=== PATIENT | female | born 1975 | race Caucasian/White ===

== ENCOUNTER 2018-12-12 15:44 | Emergency (ER) | payer OTHER ==
[2018-12-12] MEDS ORDERED: predniSONE 50 MG TAB PO STA (16:13)
[2018-12-12] MEDS ORDERED: KETOROLAC 60 MG/2 ML VIAL IM STA (16:13)
[2018-12-12 16:15] VITALS: BP 137/85; PULSE 88; RESP 16; TEMP 98.4
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
== END 2018-12-12 16:35 | disposition home or self-care (01) ==
LOC: EC 15:44
DX: S33.5XXA Sprain of ligaments of lumbar spine, initial encounter (principal); R42 Dizziness and giddiness; R51 Headache; F17.200 Nicotine dependence, unspecified, uncomplicated; Z88.5 Allergy status to narcotic agent; Z98.890 Other specified postprocedural states; Z87.828 Personal history of other (healed) physical injury and trauma; Z87.81 Personal history of (healed) traumatic fracture; X58.XXXA Exposure to other specified factors, initial encounter
CPT/HCPCS: 99283; 96372; J1885; J7512

== ENCOUNTER 2019-05-17 | Emergency (ER) | payer OTHER | END 2019-05-17 16:57 | disposition home or self-care (01) | CPT/HCPCS: 36415; 93005; 80053; 83605; 83690; 85025; 81001; 74177; 99284; 96374; 96375; 96361 ×3; J2270; J2405; Q9967 ==

== ENCOUNTER → 2023-11-07 | Outpatient (CLI) | payer OTHER ==
[2023-11-08 02:47] LABS: BUN/Creat Ratio 11.86 Ratio (12.00-20.00); Blood Urea Nitrogen 8.3 mg/dL (9.0-27.0); Chloride 102 mmol/L (96-109); Chol/HDL Ratio 5.06 Ratio; Glucose 91 mg/dL (70-110); LDL Cholesterol,Calculated 132.7 mg/dL (0.0-131.0); Potassium 4.2 mmol/L (3.5-5.5); Sodium 142 mmol/L (135-145)
[2023-11-08 02:48] LABS: ALT 18 U/L (8-44); AST 22 U/L (13-35); Albumin 4.7 g/dL (3.8-4.9); Albumin/Globulin Ratio 1.81 Ratio (1.60-3.17); Alkaline Phosphatase 98 U/L (41-126); Calcium 9.9 mg/dL (8.7-10.3); Carbon Dioxide 28.5 mmol/L (21.6-31.8); Globulin 2.6 g/dL (1.6-3.3); Total Bilirubin <0.2 mg/dL (0.3-1.2); Total Protein 7.3 g/dL (6.2-8.2)
[2023-11-08 02:51] LABS: Basophils # (A) 0.09 X 10*3/uL (0.00-0.10); Basophils % (A) 1.1 %; Eosinophils # (A) 0.35 X 10*3/uL (0.04-0.35); Eosinophils % (A) 4.3 %; HCT 46.5 % (37.2-46.3); HGB 14.7 g/dL (12.0-15.0); Lymphocytes # (A) 2.12 X 10*3/uL (0.90-5.00); MCH 29.8 pg (27.0-32.0); MCHC 31.6 g/dL (32.0-37.0); MCV 94.1 FL (80.0-97.0); Mean Platelet Volume 10.1 FL (9.5-12.2); Monocytes # (A) 0.55 X 10*3/uL (0.20-1.00); Monocytes % (A) 6.7 %; NRBC Per 100 WBC 0 X 10*3/uL (0.00-0.01); Neutrophils # (A) 5.01 X 10*3/uL (1.80-7.70); Neutrophils % (A) 61.5 %; Platelet Count 498 X 10*3/uL (140-440); RBC 4.94 X 10*6/uL (4.10-5.20); RDW 13.6 % (11.5-14.5); WBC 8.15 X 10*3/uL (4.50-10.00)
== END | disposition home or self-care (01) ==
LOC: LABWHC1 15:45
PROVIDERS: ATTEND Internal Medicine
DX: Z00.00 Encounter for general adult medical examination without abnormal findings (principal); R53.83 Other fatigue; R51.9 Headache, unspecified
CPT/HCPCS: 36415; 80053; 80061; 84443; 85025; 86803

== ENCOUNTER → 2023-11-07 | Outpatient (CLI) | payer MEDICARE ==
--- NOTE | 2023-11-11 18:10 | XR ---
EXAMINATION TYPE: XR cervical spine comp DATE OF EXAM: 11/07/2023 4:20 PM CLINICAL INDICATION: Female, 48 years old with history of M54.2 CERVICALGIA; PHH COMPARISON: None TECHNIQUE: The cervical spine was imaged in frontal, lateral, odontoid and bilateral oblique. FINDINGS: The osseous structures show normal alignment without evidence of an acute fracture. There are osteoph ytes noted throughout the cervical spine on the anterior and lateral aspects of the vertebral bodies. The intervertebral disk spaces are narrowed at multiple levels. Pedicles are intact. Soft tissues a re within normal limits. The odontoid appears intact. IMPRESSION: 1. No fracture or dislocation. 2. Mild degenerative disc disease changes of the cervical spine.
== END | disposition home or self-care (01) ==
LOC: RADXRMAIN 16:00
PROVIDERS: ATTEND Internal Medicine
DX: M54.2 Cervicalgia (principal)
CPT/HCPCS: 72050

== ENCOUNTER → 2023-11-09 | Outpatient (CLI) | payer MEDICARE ==
--- NOTE | 2023-11-09 09:33 | US ---
EXAMINATION TYPE: US abdomen complete DATE OF EXAM: 11/09/2023 COMPARISON: NONE CLINICAL INDICATION: Female, 48 years old with history of R10.1 US ABD R14.0 ABD US; bloated, cholecy stectomy TECHNIQUE: Multiple sonographic images of the abdomen are obtained. FINDINGS: EXAM MEASUREMENTS: Liver Length: 18.3 cm Gallbladder Wall: Surgically absent CBD: 0.5 cm Spleen: 9.3 cm Right Kidney:10.5 x 5.3 x 4.5cm Left Kidney: 10.6 x 3.6 x 5.1cm Pancreas: wnl Liver: upper limits of normal for size Gallbladder: Surgically absent Evidence for sonographic Hodges's sign: no CBD: wnl Spleen: wnl Right Kidney: wnl Left Kidney: wnl Upper IVC: wnl Abd Aorta: wnl IMPRESSION: 1. Postcholecystectomy changes. 2. Hepatomegaly.
--- NOTE | 2023-11-11 11:28 | MM ---
Reason for Exam: Screening (asymptomatic). Baseline mammogram. Patient History: Menarche at age 11. First Full-Term at age 14. Left ovary removed at age 19. Right ovary removed at age 19. Hysterectomy at age 19. Postmenopausal. Patient has history of breast feeding. Maternal aunt had breast cancer at or over age 50. Maternal aunt had breast cancer at or over age 50. Maternal aunt had breast cancer at or over age 50. Risk Values: Colette 5 year model risk: 0.7%. NCI Lifetime model risk: 6.5%. Prior Study Comparison: Patient's first Mammogram. Tissue Density: The breasts are heterogeneously dense, which may obscure small masses. Findings: Analyzed By CAD. Right breast: There is no suspicious group of microcalcifications or new suspicious mass. Left breast: There is no suspicious group of microcalcifications or new suspicious mass. Overall Assessment: Negative, BI-RAD 1 Management: Screening Mammogram of both breasts in [address] [facility] will attempt to contact patient to return for supplemental views and ultrasound if indicated. Patient should continue monthly self-breast exams. A clinical breast exam by your physician is recommended on an annual basis. This exam should not preclude additional follow-up of suspicious palpable abnormalities. Note on Colette scores and lifetime risk: 1. A Colette score greater than 3% is considered moderate risk. If this is the case, consider specialist referral to assess eligibility for a risk reducing agent. 2. If overall lifetime risk for the development of breast cancer is 20% or higher, the patient may qualify for future screening with alternating mammogram and breast MRI. Electronically signed and approved by: Kody Wilson DO
== END | disposition home or self-care (01) ==
LOC: RADMAMWWP 07:47
PROVIDERS: ATTEND Internal Medicine
DX: Z12.31 Encounter for screening mammogram for malignant neoplasm of breast (principal); R10.10 Upper abdominal pain, unspecified; R14.0 Abdominal distension (gaseous)
CPT/HCPCS: 76700; 77067

== ENCOUNTER 2023-12-19 09:23 | Day surgery (SDC) | payer MEDICARE, OTHER ==
[2023-12-19] MEDS: IV FLUID CONTINUATION 1,000 ML IV ONE (09:41)
[2023-12-19 09:51] VITALS: TEMP 98.2
[2023-12-19] MEDS ORDERED: LIDOCAINE 1% (10MG/ML) FOR IV START INTRADERMA PRN (09:51)
[2023-12-19] MEDS: LACTATED RINGERS 1,000 ML IV SCH (10:00)
[2023-12-19] MEDS ORDERED: PROPOFOL 10 MG/ML 20 ML VIAL IV ONE (10:12)
[2023-12-19] MEDS ORDERED: LIDOCAINE 1% INJ 10MG/ML (20 ML MDV) ONE (10:12)
--- NOTE | 2023-12-19 10:32 | P.PCN ---
Date of Procedure: 12/19/23 Procedure(s) Performed: Brief history: Patient is a pleasant 48-year-old white female scheduled for an elective upper endoscopy as well as colonoscopy as a part of evaluation of GERD/epigastric pain and chronic diarrhea of several years duration Procedure performed: Esophagogastroduodenoscopy with biopsy Colonoscopy with random biopsies Preoperative diagnosis: Chronic epigastric pain Chronic diarrhea Anesthesia: MAC Procedure: After informed consent was obtained from the patient was brought into the endoscopy unit and IV sedation was administered by anesthesia under continuous monitoring. Initially upper endoscopy was done. The Olympus GF 160 video endoscope was inserted inserted into the mouth and esophagus intubated without any difficulty and was gradually advanced into the stomach and duodenum and carefully examined. The bulb and second part of the duodenum appeared normal. Biopsies were done from the duodenum to evaluate for celiac disease. The scope was then withdrawn into the stomach adequately insufflated with air and upon careful examination the antrum had mild gastritis and biopsies were done from this area. Mucosa of the body, cardia and fundus appeared normal. The scope was then withdrawn into the esophagus. Small hiatal hernia noted. The GE junction was located at 35 cm to the incisors. It appeared regular 2 superficial erosions and 1 ulceration consistent with LA grade B reflux esophagitis.. Rest of the esophagus appeared normal. Patient tolerated the procedure well. At this time the patient continued to remain sedation. Initial digital rectal examination was normal. Olympus CF 160 video colonoscope was then inserted into the rectum and gradually advanced to the cecum without any difficulty. Careful examination was performed as the scope was gradually being withdrawn. The prep was excellent. The cecum, ascending colon, transverse colon, descending colon, sigmoid colon and rectum appeared normal. Random biopsies were done from the ascending and descending colon rule out microscopic/collagenous colitis. Rectum there was a 3 mm polyp that was removed by cold biopsy. Retroflexion was performed in the rectum and no lesions were noted. Patient tolerated the procedure well. Impression: 1. Upper endoscopy revealed small hiatal hernia, LA grade B reflux esophagitis, mild antral gastritis and duodenitis 2. Colonoscopy 3 mm distal rectal polyp status post cold biopsy and the rest of the colon appeared normal Recommendations: Findings of this examination were discussed with the patient as well as her family. Follow the biopsy results. She was advised to start on omeprazole 40 mg daily and follow antireflux measures. Follow-up in the office in 2 weeks. Recommend repeat colonoscopy in 10 years.
[2023-12-19 11:07] VITALS: BP 119/81; PULSE 68; RESP 18
== END 2023-12-19 11:07 | disposition home or self-care (01) ==
LOC: ORWHC2ENDO 09:23
PROVIDERS: ATTEND Internal Medicine Gastroenterology
CPT/HCPCS: 43239; 45380; 88305

== ENCOUNTER 2024-04-23 08:11 | Day surgery (SDC) | payer MEDICARE, OTHER ==
[2024-04-23] MEDS: diazePAM 5 MG TAB PO STA (08:54)
[2024-04-23 09:02] VITALS: TEMP 98.2
--- NOTE | 2024-04-23 11:28 | CT ---
EXAMINATION TYPE: CT thor lumbar spine w con CT DLP: 763 mGycm, Automated exposure control for dose reduction was used. DATE OF EXAM: 04/23/2024 11:04 AM COMPARISON: Fluoroscopic myelogram of the same date, CT abdomen and pelvis 05/17/2019, thoracolumbar s pine radiographs 12/25/2023. CLINICAL INDICATION:Female, 48 years old with history of M43.26 FUSION OF SPINE, LUMBAR MORENO, M54.50, M54.16; PHH, post myelogram, pain TECHNIQUE: Multiple axial images were obtained of the thoracolumbar spine after fluoroscopic myelogr am. Soft tissue and bone windows in coronal and sagittal planes were obtained and reviewed. Contrast used:na mL of Isovue M300 with IV Contrast, none. Oral contrast used: none. FINDINGS: Postsurgical changes with bilateral pedicular screws and rods involving T11-L3. Only a left-sided ped icle screw at the L1 level. Additional transverse oriented bilateral SI joint screws. Hardware appear s intact with appropriate alignment. This creates streak artifact which limits evaluation. No acute f racture. Remote fracture of the L1 vertebral body with similar 2 mm retropulsion. No new vertebral veronica dy height loss. No spondylolisthesis. Remote healed injury to the S1 vertebral body. Mild S-shaped sc oliotic curvature of the thoracolumbar spine. Schmorl's node involving the superior endplate of the T 8 vertebral body. No significant central canal or neuroforamina stenosis of the thoracic spine. No evidence for disc he rniation. Approximately 2 mm of retropulsion of the posterior cortex of the L1 vertebral body from prior fractu re. Results in mild effacement of the anterior thecal sac. No other evidence for significant central canal stenosis of the lumbar spine. No disc herniation. No significant neuroforaminal stenosis of the lumbar spine. Atherosclerotic the visualized lungs are clear. Small hiatal hernia. Gallbladder is surgically absent . Calcification of the aorta and its branches. Small coronary artery calcifications. IMPRESSION: 1. No evidence for acute spinal fracture. 2. Postsurgical changes from fixation T11-L3 with additional bilateral SI joint fixation. Hardware ap pears intact with appropriate alignment. Remote fractures of the L1 and S2 vertebral bodies. Mild ret ropulsion of the posterior cortex of the L1 vertebral body resulting in mild central canal narrowing. Otherwise no other significant central canal or neural foraminal narrowing visualized throughout the thoracolumbar spine. No disc herniation identified. [facility], , 04/23/2024 11:25 AM
[2024-04-23 11:52] VITALS: RESP 16
--- NOTE | 2024-04-23 12:18 | FL ---
EXAMINATION TYPE: FL myelogram 2 or more regions, thoracic and lumbar DATE OF EXAM: 04/23/2024 COMPARISON: Correlation CT 05/17/2019 HISTORY: 48-year-old female M43.26 FUSION OF SPINE, LUMBAR MORENO, M54.50, M54.16. Patient with low tiffanie k pain. FL TIME: 1:37 minutes Total images: 3. Total dose: 50 mGycm2 Informed consent was obtained and all the patient's questions were answered. Initial fluoroscopic images shows T11-L3 posterior lumbar fusion. There is additional bilateral fixat ion screws across the SI joints. The L3-L4 level was localized under fluoroscopy. Standard sterile technique was utilized as well as appropriate local anesthesia 1% Lidocaine. A regular 22-gauge spinal needle was introduced into the t hecal sac under fluoroscopic guidance and 10 mL's of Isovue M-300 was injected. The needle was removed, hemostasis obtained, and a dressing placed. The patient tolerated the procedure well and left the department in stable condition. CT myelography is to follow after 30 minutes. Images show no abnormal impression on to the thecal sac/contrast column on the myelogram images. The patient was counseled on routine post procedure precautions. IMPRESSION: Successful myelography thoracic and lumbar spine. [facility], , 04/23/2024 12:16 PM
[2024-04-23 14:38] VITALS: BP 123/71; PULSE 68
== END 2024-04-23 14:30 | disposition home or self-care (01) ==
LOC: RADPROMAIN 08:11 → EDSTATUS 08:15 → RADPROMAIN 14:30
PROVIDERS: ATTEND Orthopaedic Surgery
DX: M54.16 Radiculopathy, lumbar region (principal); M43.26 Fusion of spine, lumbar region; Z98.1 Arthrodesis status
CPT/HCPCS: 62305; 72129; 72132; J2003; Q9967

== ENCOUNTER → 2024-06-04 | Outpatient (CLI) | payer OTHER ==
[2024-06-04 10:06] VITALS: BP 121/86; PULSE 74; RESP 18; TEMP 96.9
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
== END ==
LOC: PNWHC3 09:41
PROVIDERS: ATTEND Specialist
DX: M43.25 Fusion of spine, thoracolumbar region (principal); M43.28 Fusion of spine, sacral and sacrococcygeal region; F17.200 Nicotine dependence, unspecified, uncomplicated; Z88.5 Allergy status to narcotic agent; Z88.8 Allergy status to other drugs, medicaments and biological substances
CPT/HCPCS: 99211

== ENCOUNTER → 2024-07-14 | Outpatient (CLI) | payer OTHER ==
--- NOTE | 2024-07-14 14:02 | CTL ---
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, SMOKER, Lung cancer screening, History of Smoking/tobacco use. TECHNIQUE: Low dose computed tomography scan was performed through the chest at 1 mm thick sections a nd reconstructed images in multiple planes at 1 mm and [address] DLP: 92.[address] CTDI: 2.5 mGy Automated exposure control for dose reduction was used. CT DIAGNOSTIC QUALITY: Satisfactory FINDINGS: Nodules: Few scattered pulmonary nodules with examples listed below. Posterior left upper lobe 4.4 mm pulmonary nodule (series 6, image 19). Left upper lobe 2.4 mm pulmonary nodule (series 6, image 14). Right middle lobe 3.6 mm pulmonary nodule (series 6, image 33). Right lower lobe 3.8 mm pulmonary nodule (series 6, image 39). LUNGS: COPD: Severity: Mild Fibrosis: Severity: None Lymph nodes: None Other findings: Minimal bilateral lower lobe, lingular, and right middle lobe linear scarring and/or atelectasis. RIGHT PLEURAL SPACE: Effusion: None Calcification: None Thickening: None Pneumothorax: None LEFT PLEURAL SPACE: Effusion: None Calcification: None Thickening: None Pneumothorax: None HEART: Heart Size: Normal Coronary Calcification: Mild Pericardial Effusion: None OTHER FINDINGS: Upper abdomen: Gallbladder is surgically absent. Bony thorax: Postsurgical changes of the thoracolumbar spine with bilateral pedicular screws and rods . Possible remote healed sternal fracture. Supraclavicular region: None Other: Mild atherosclerotic calcification of the aorta and its branches. IMPRESSION: 1. Few scattered pulmonary nodules measuring less than 5 mm. 2. Mild emphysematous changes. CT LUNG RAD AND CT CHEST RECOMMENDATION: Lung-Rad 2 Benign Appearance or Behavior: Continue annual sc reening with LDCT in 12 months. S Modifier (other clinically significant findings): None [facility], , 07/14/2024 2:00 PM
== END | disposition home or self-care (01) ==
LOC: RADCTMAIN 12:17
PROVIDERS: ATTEND Internal Medicine
DX: Z12.2 Encounter for screening for malignant neoplasm of respiratory organs (principal); F17.210 Nicotine dependence, cigarettes, uncomplicated; J43.9 Emphysema, unspecified; R91.8 Other nonspecific abnormal finding of lung field
CPT/HCPCS: 71271

== ENCOUNTER → 2024-07-16 | Outpatient (CLI) | payer OTHER ==
[2024-07-16 08:12] VITALS: BP 136/86; PULSE 85; RESP 17
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
== END ==
LOC: PNWHC3 07:49
PROVIDERS: ATTEND Specialist
DX: M43.25 Fusion of spine, thoracolumbar region (principal); M43.28 Fusion of spine, sacral and sacrococcygeal region; F17.200 Nicotine dependence, unspecified, uncomplicated; Z88.5 Allergy status to narcotic agent; Z88.6 Allergy status to analgesic agent
CPT/HCPCS: 99212

== ENCOUNTER → 2024-09-10 | Outpatient (CLI) | payer OTHER ==
[2024-09-10 10:13] VITALS: BP 157/89; PULSE 75; RESP 16; TEMP 97.3
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
== END ==
LOC: PNWHC3 09:57
PROVIDERS: ATTEND Specialist
DX: M43.25 Fusion of spine, thoracolumbar region (principal); M43.28 Fusion of spine, sacral and sacrococcygeal region; F17.200 Nicotine dependence, unspecified, uncomplicated; Z88.5 Allergy status to narcotic agent; Z88.8 Allergy status to other drugs, medicaments and biological substances
CPT/HCPCS: 80307; G0463; 99212

== ENCOUNTER → 2024-09-30 | Day surgery (SDC) | payer OTHER ==
[2024-09-25 13:52] VITALS: BMI 29.8
[~2024-09-30] MED LIST: DEXAMETHASONE SOD PHOSPHATE 10 MG/ML 1 ML VIAL ONE; IOPAMIDOL M300 15ML VIAL ONE; LACTATED RINGERS 1,000 ML IV SCH
[2024-09-30 10:29] VITALS: TEMP 97.8
--- NOTE | 2024-09-30 11:34 | P.PCN ---
Description of Procedure: PREOPERATIVE DIAGNOSIS: 1-Lumbar radiculopathy . 2-lumbar degenerative disc disease. 3-lumbar spondylosis with lumbar facet arthropathy without myelopathy POSTOPERATIVE DIAGNOSIS: 1-lumbar radiculopathy. 2-lumbar degenerative disc disease. 3-lumbar spondylosis with facet arthropathy without myelopathy PROCEDURE 1. Transforaminal epidural steroid injection under fluoroscopic guidance at RIGHT T12-L1, L1-L2 level. (Fluoroscopy images stored on file in the radiology Department ) 2. Lumbar epidurogram . ANESTHESIA: Local with 1% lidocaine 5 ml. subcutaneously. Continuous pulse ox, EKG, blood pressure and verbal communication was maintained with the patient. EBL: Minimal PROCEDURE INDICATION: The patient with low back pain and radiculopathy symptoms unresponsive to conservative treatment. The patient was seen and identified in the preoperative area. Risks, benefits, complications, and alternatives were discussed with the patient. The patient agreed to proceed with the procedure and signed the consent. IV was started, and vital signs were stable. PROCEDURE DESCRIPTION / TECHNIQUE: After getting consent, patient was taken to the OR and time out was completed. The patient was placed in the prone position on procedure table and a pillow was placed under the abdomen to reduce lumbar lordosis. The lumbosacral area was prepped and draped in the usual sterile fashion. Critical pause was taken. After injecting 5 mL of plain 1% lidocaine subcutaneously, under oblique view of the fluoroscope, a 22-gauge spinal needle was introduced under the tunnel view of the fluoroscope on the T12-L1 RIGHT side and the needle was advanced so that the tip of the needle was at the posterior inferior quadrant of the interver tebral foramen at the lateral view of the fluoroscope and in the lateral third of the facet column in the AP view of the fluoroscope. Negative CSF, negative blood, negative paresthesia. After needle position confirmation by AP and cross table lateral view, 3 mL of Isovue-M 200 contrast was injected under continuous fluoroscope. No contrast was noted in the intrathecal or intravascular space. The epidurogram was noted. Again after repeated negative aspiration 2.5 mL solution was injected which consists 1 mL of normal saline mixed with 1.5 mL of 15 mg dexamethasone. Needle was removed . Same procedure was repeated at the L1 - L 2RIGHT side , using contrast under continuous fluoroscopy and using same amount of dexamethasone. At the end of the procedure, skin was cleansed, and bandages were applied. DISPOSITION / PLANS: No complication. The patient tolerated the procedure well. The patient was placed in a supine position and transferred to the recovery area in a stable condition for observation. There was no evidence of lower extremity motor or sensory deficit after the procedure. Patient was discharged from the recovery room after meeting discharge criteria. Home discharge instructions were given to the patient by the staff. The patient was reexamined prior to discharge.
--- NOTE | 2024-09-30 11:42 | FL ---
EXAMINATION TYPE: FL guided pain mgmt statistic Intraoperative/procedural fluoroscopic services were provided. CLINICAL INDICATION:Female, 49 years old with history of TRANSFORAMINAL EPI; , PHH FINDINGS: Fluoroscopic images demonstrating bilateral transforaminal injections. Thoracolumbar fusion hardware with bilateral pedicular screws and rods. No radiographic evidence for complication. Total fluoroscopy time is 44.5 seconds. DAP: [id number] Please see the operative/procedural note for further details. [facility], , 09/30/2024 11:39 AM
[2024-09-30 11:58] VITALS: BP 121/82; PULSE 77; RESP 16
== END ==
LOC: ORPAIN 10:15
PROVIDERS: ATTEND Pain Medicine Interventional Pain Medicine
DX: M51.16 Intervertebral disc disorders with radiculopathy, lumbar region (principal); M47.26 Other spondylosis with radiculopathy, lumbar region
CPT/HCPCS: 64483; 64484; J1100; Q9967